=== PATIENT | female | born 1940 | race Asian ===

== ENCOUNTER 2018-11-25 19:17 | Emergency (ER) | payer MEDICARE, OTHER, SELFPAY ==
[2018-11-25 19:22] VITALS: BP 179/82; PULSE 88; RESP 16; TEMP 37.1; O2SAT 99
[2018-11-25 19:37] VITALS: BP 170/70
--- NOTE | 2018-11-25 19:38 | PC.NURSE ---
Provided teaching to patient and spouse on how to use new blood pressure cuff. vitals taken on patients new machine. Pt verbalizes understanding on usage of personal machine and return demonstration provided.
[2018-11-25 20:15] VITALS: BP 139/81
[2018-11-25 20:39] LABS: Add Manual Diff / Slide Review NO; Basophils Absolute Auto 0 /uL (0-100); Basophils Percent Auto 0.4 % (0-2); Eosinophils Absolute Auto 100 /uL (0-450); Eosinophils Percent Auto 1.6 % (2-4); Hematocrit 40.9 % (36-46); Hemoglobin 13.9 g/dL (12.0-16.0); Lymphocytes Absolute Auto 1800 /uL (1100-4500); Lymphocytes Percent Auto 36.6 % (25-40); Mean Corpuscular Hemoglobin 32.2 PG (26-34); Mean Corpuscular Volume 94.6 fL (80-100); Monocytes Absolute Auto 400 /uL (0-900); Monocytes Percent Auto 8.8 % (3-14); Neutrophils Absolute Auto 2600 /uL (1500-7000); Neutrophils Percent Auto 52.6 % (50-75); Platelet Count 232 X10^3/uL (150-400); Red Blood Cell Count 4.32 X10^6/uL (4.0-5.2)
[2018-11-25 20:41] VITALS: BP 133/69
[2018-11-25 20:52] LABS: Alanine Aminotransferase 25 IU/L (9-52); Albumin 4.1 g/dL (3.5-5.0); Albumin Globulin Ratio 1.2 (1.0-2.8); Alkaline Phosphatase 56 U/L (38-126); Aspartate Aminotransferase 33 IU/L (14-36); BUN Creatinine Ratio 21.4 (6-22); Bilirubin Total 0.4 mg/dL (0.2-1.3); Blood Urea Nitrogen 15 mg/dL (7-17); Calcium 9.5 mg/dL (8.4-10.2); Carbon Dioxide 28 mmol/L (22-32); Chloride 102 mmol/L (98-107); Creatine Kinase 106 U/L (30-135); Estimated Glomerular Filt Rate > 60.0 mL/min (>60); Globulin 3.3 g/dL (1.7-4.1); Glucose 120 mg/dL (80-110); HEMOLYSIS < 15 (0-50); Potassium 3.7 mmol/L (3.4-5.1); Sodium 139 mmol/L (137-145); Total Protein 7.4 g/dL (6.3-8.2)
[2018-11-25 21:04] LABS: Troponin I < 0.012 ng/mL (0.01-0.034)
[2018-11-25 21:08] LABS: CKMB % Relative Index 1.3 % (1.5-5.0); Creatine Kinase MB 1.41 ng/mL (<2.37)
--- NOTE | 2018-11-25 21:08 | ED_ITS ---
HPI - General Adult <HUGO BallP - Last Filed: 11/25/18 23:28> General Chief complaint: Hypertension Stated complaint: HIGH BLOOD PRESSURE RIGHT EYE IS RED Time Seen by Provider: 11/25/18 19:37 Source: patient Mode of arrival: ambulatory Limitations: no limitations History of Present Illness HPI narrative: This is a pleasant 78-year-old female, nonsmoker, presents with her friend with chief complain of elevated blood pressure for last 10 days. She reports her usual blood pressure is in 130-140's/70-80's. However, it has been running in systolic 150s to 160s over diastolic 80s. She was evaluated by Dr. Lakhani 4 days ago and her daily lisinopril was increased from 5 mg to 7.5 mg which she started taking on Wednesday. She denies extremity weakness, balance problem, speech difficulty, facial droops or vision change. She reports posterior neck tightness and mild head discomfort. She denies chest pain, breathing difficulty, dizziness. She also has subconjunctival hemorrhage since yesterday on her right eye. She was evaluated by eye doctor today. She reports there is no vision change in right eye. She was informed by eye doctor that this condition could happen with high blood pressure and was concerned if she needs head CT scan. Review of Systems <Oscar TanNereida [facility] Last Filed: 11/25/18 23:28> Review of Systems General: Denies fever, chills, fatigue, malaise, sweats. HEENT: Denies sinus pain, ear pain, sore throat, difficulty swallowing, dizziness. Respiratory: Denies dyspnea, cough, wheezing, hemoptysis, sputum. Cardiovascular: Denies chest pain, palpitations, orthopnea, edema. Gastrointestinal: Denies nausea, vomiting, abdominal pain, diarrhea, constipation, melena. : Denies dysuria, frequency, incontinence, hematuria, urinary retention. Musculoskeletal: Denies weakness, joint pain or bony pain. Skin: Denies rash, skin lesions, or other. Neurologic: Denies weakness, headache, numbness, change in speech, confusion, seizures, incoordination. Psychiatric: No concerning psychosocial issues. 12-point review of systems is negative except for those stated above. PFSH <Oscar Garcia [facility] Last Filed: 11/25/18 23:28> Medical History (Updated 11/25/18 @ 21:26 by WILL Ball) HTN (hypertension) (Acute) Social History Smoking Status: Never smoker Social History Smoking Status: Never smoker Exam <WILL Ball - Last Filed: 11/25/18 23:28> Narrative Exam Narrative: GEN: Alert, oriented x 3, well appearing and nourished, and appears to be anxious, appears to be younger than her stated age. Head: Normal cephalic, atraumatic. No scalp or temporal tenderness, palpable mass or rash. EYES: Pupils are equal, round, and reactive to light and accommodation. Extraocular muscles are intact bilaterally. There is R subconjunctival hemorrhage. No exudate and sclera non-icteric. ENT: Hearing grossly intact. Nose without bleeding, purulent discharge. Facial sinuses nontender to palpate. Mucous membrane moist, no mucosal lesion. Throat without erythema, tonsillar hypertrophy or exudate. Uvula in midline, airway patent. Neck: Trachea in midline. No JVD, non-tender without lymphadenopathy. No masses or thyroid megaly. Supple, non-tender and meningeal signs. CARDIAC: Normal regular rate and rhythm without murmurs, gallops, or rubs. No chest wall tenderness. No peripheral edema, cyanosis or pallor. Capillary refi ll is less than 2 seconds. RESPIRATORY: Lungs are cleat to auscultate bilaterally. No cough, wheezes, rales, or rhonchi. No stridor, respiratory distress, increase work of breathing, or accessary muscle used. ABD: Abdomen soft, nontender and non-distended. No guarding or rebound tenderness to palpate. Bowel sounds are normal in all 4 quadrants. There is no palpable masses or organomegaly. EXT: Full painless ROM of all extremities with no loss of sensation, strength, effusion or edema. SKIN: Warm, dry, normal color for patient. No erythema, lesions or rash. BACK: Nontender without deformity or crepitance. No flank tenderness. NEUROLOGICAL: Alert and oriented to place, time and person. No facial droops, dysphasia. CN II-XII intact. Strength and sensation symmetric and intact throughout. Cerebellar testing normal. PSYCHIATRIC: Good judgement and reason, without hallucinations, abnormal affect or abnormal behaviors during the examination. Patient is not suicidal. Initial Vital Signs Initial Vital Signs: Vital Signs Temperature 98.8 F 11/25/18 19:22 Pulse Rate 88 11/25/18 19:22 Respiratory Rate 16 11/25/18 19:22 Blood Pressure 179/82 H 11/25/18 19:22 Pulse Oximetry 99 11/25/18 19:22 <Parker Hoffman MD - Last Filed: 11/26/18 02:14> Initial Vital Signs Initial Vital Signs: Vital Signs Temperature 98.8 F 11/25/18 19:22 Pulse Rate 88 11/25/18 19:22 Respiratory Rate 16 11/25/18 19:22 Blood Pressure 179/82 H 11/25/18 19:22 Pulse Oximetry 99 11/25/18 19:22 Scores <WILL Ball - Last Filed: 11/25/18 23:28> HEART Score Heart Score history: Slightly Suspicious Heart Score EKG: Normal Heart Score Age: > or = 65 years old Heart Score risk factors: 1-2 risk factors Heart Score troponin: < or = to normal limit Heart Score Total: 3 Course <WILL Ball - Last Filed: 11/25/18 23:28> Orders Ordered: ED Orders 11/25/18 20:10 EKG-12 Lead Stat 11/25/18 20:30 Complete Blood Count AUTO DIFF Stat Comprehensive Metabolic Panel Stat Troponin & CK Cardiac Panel Stat Vital Signs - 8 hr 11/25/18 19:22 11/25/18 19:37 11/25/18 20:15 Temperature 98.8 F Pulse Rate 88 Respiratory Rate 16 Blood Pressure 179/82 H Blood Pressure [Right Arm] 170/70 H 139/81 Pulse Oximetry 99 11/25/18 20:41 11/25/18 21:15 11/25/18 21:36 Temperature Pulse Rate Respiratory Rate Blood Pressure 142/76 H Blood Pressure [Right Arm] 133/69 143/72 H Pulse Oximetry <Parker Hoffman MD - Last Filed: 11/26/18 02:14> Orders Ordered: ED Orders 11/25/18 20:10 EKG-12 Lead Stat 11/25/18 20:30 Complete Blood Count AUTO DIFF Stat Comprehensive Metabolic Panel Stat Troponin & CK Cardiac Panel Stat Vital Signs - 8 hr 11/25/18 19:22 11/25/18 19:37 11/25/18 20:15 Temperature 98.8 F Pulse Rate 88 Respiratory Rate 16 Blood Pressure 179/82 H Blood Pressure [Right Arm] 170/70 H 139/81 Pulse Oximetry 99 11/25/18 20:41 11/25/18 21:15 11/25/18 21:36 Temperature Pulse Rate Respiratory Rate Blood Pressure 142/76 H Blood Pressure [Right Arm] 133/69 143/72 H Pulse Oximetry Medical Decision Making <WILL Ball - Last Filed: 11/25/18 23:28> Differential Diagnosis hypertension, IA, neurological deficit, stroke Medical Records Medical records reviewed: Yes I reviewed the patient's medical records. Lab Data Lab results reviewed: Yes I reviewed the patient's lab results. Result diagrams: 11/25/18 20:30 11/25/18 20:30 Lab Results 11/25/18 11/25/18 Range/Units 20:30 20:30 WBC 5.0 (4.5-11.0) X10^3/uL RBC 4.32 (4.0-5.2) X10^6/uL Hgb 13.9 (12.0-16.0) g/dL Hct 40.9 (36-46) % MCV 94.6 (80-100) fL MCH 32.2 (26-34) PG MCHC 34.0 (30-36) % RDW 12.0 (11.6-14.8) % Plt Count 232 (150-400) X10^3/uL Neut % (Auto) 52.6 (50-75) % Lymph % (Auto) 36.6 (25-40) % Early % (Auto) 8.8 (3-14) % Eos % (Auto) 1.6 L (2-4) % Baso % (Auto) 0.4 (0-2) % Neut # (Auto) 2600 (6931-2631) /uL Lymph # (Auto) 1800 (6761-2396) /uL Early # (Auto) 400 (0-900) /uL Eos # (Auto) 100 (0-450) /uL Baso # (Auto) 0 (0-100) /uL Sodium 139 (137-145) mmol/L Potassium 3.7 (3.4-5.1) mmol/L Chloride 102 (98-107) mmol/L Carbon Dioxide 28 (22-32) mmol/L BUN 15 (7-17) mg/dL Creatinine 0.70 (0.52-1.04) mg/dL Estimated GFR > 60.0 (>60) mL/min BUN/Creatinine Ratio 21.4 (6-22) Glucose 120 H (80-110) mg/dL Calcium 9.5 (8.4-10.2) mg/dL Total Bilirubin 0.4 (0.2-1.3) mg/dL AST 33 (14-36) IU/L ALT 25 (9-52) IU/L Alkaline Phosphatase 56 (38-126) U/L Total Creatine Kinase 106 (30-135) U/L CK-MB (CK-2) 1.41 (<2.37) ng/mL CK-MB (CK-2) Rel Index 1.3 L (1.5-5.0) % Troponin I < 0.012 (0.01-0.034) ng/mL Total Protein 7.4 (6.3-8.2) g/dL Albumin 4.1 (3.5-5.0) g/dL Globulin 3.3 (1.7-4.1) g/dL Albumin/Globulin Ratio 1.2 (1.0-2.8) ECG Data Attestation: I personally reviewed and interpreted this ECG as follows: Prior ECG tracings: not available for review Interpretation: Normal sinus rhythm rate at 81, borderline L axis, no ST elevation or depression. MDM Narrative Medical decision making narrative: This is a 78-year-old female who appears to be much younger than her stated age came in to ED with concerns of elevated high blood pressure for last 10 days. Her systolic blood pressure was running in 150-160's/80's. She has seen by her primary care physician 4 days ago and had her blood pressure medication, Lisinopril increase to 7.5 mg from 5 mg. She also takes daily baby aspirin. She also had subconjunctival hemorrhage on right eye yesterday and was evaluated by eye doctor today. She was told that this could be from high blood pressure. She denies chest pain, breathing difficulty, dizziness but reports some tightness to her posterior neck/head. The neuro exam was intact and no deficit was observed per exam. I discussed in length with the patient that there is no signs and symptoms of stroke at this time and there is no indication for CAT scan when her blood pressure is not significantly elevated. Her EKG, blood test including cardiac enzyme were remarkable. Her blood pressure during ED stay was in 130s to 140s in systolic over 70s to 80s and diastolic. The patient felt relieved when she was informed with study findings and physical exams. Patient advised to continue to take her blood pressure medication as 7.5 mg of lisinopril and to follow up with primary care physician next week. Return precautions were discussed with patient including chest pain, breathing difficulty, dizziness, vision change, severe headache, weakness to limbs, speech difficulty, visual changes, facial drips, swallowing difficulty. Patient verbalized the understanding and no further questions were expressed at this time. <Parker Hoffman MD - Last Filed: 11/26/18 02:14> Lab Data Lab Results 11/25/18 11/25/18 Range/Units 20:30 20:30 WBC 5.0 (4.5-11.0) X10^3/uL RBC 4.32 (4.0-5.2) X10^6/uL Hgb 13.9 (12.0-16.0) g/dL Hct 40.9 (36-46) % MCV 94.6 (80-100) fL MCH 32.2 (26-34) PG MCHC 34.0 (30-36) % RDW 12.0 (11.6-14.8) % Plt Count 232 (150-400) X10^3/uL Neut % (Auto) 52.6 (50-75) % Lymph % (Auto) 36.6 (25-40) % Early % (Auto) 8.8 (3-14) % Eos % (Auto) 1.6 L (2-4) % Baso % (Auto) 0.4 (0-2) % Neut # (Auto) 2600 (3928-8897) /uL Lymph # (Auto) 1800 (4718-2028) /uL Early # (Auto) 400 (0-900) /uL Eos # (Auto) 100 (0-450) /uL Baso # (Auto) 0 (0-100) /uL Sodium 139 (137-145) mmol/L Potassium 3.7 (3.4-5.1) mmol/L Chloride 102 (98-107) mmol/L Carbon Dioxide 28 (22-32) mmol/L BUN 15 (7-17) mg/dL Creatinine 0.70 (0.52-1.04) mg/dL Estimated GFR > 60.0 (>60) mL/min BUN/Creatinine Ratio 21.4 (6-22) Glucose 120 H (80-110) mg/dL Calcium 9.5 (8.4-10.2) mg/dL Total Bilirubin 0.4 (0.2-1.3) mg/dL AST 33 (14-36) IU/L ALT 25 (9-52) IU/L Alkaline Phosphatase 56 (38-126) U/L Total Creatine Kinase 106 (30-135) U/L CK-MB (CK-2) 1.41 (<2.37) ng/mL CK-MB (CK-2) Rel Index 1.3 L (1.5-5.0) % Troponin I < 0.012 (0.01-0.034) ng/mL Total Protein 7.4 (6.3-8.2) g/dL Albumin 4.1 (3.5-5.0) g/dL Globulin 3.3 (1.7-4.1) g/dL Albumin/Globulin Ratio 1.2 (1.0-2.8) Discharge Plan Departure Patient Disposition: Home Clinical Impression: History of high blood pressure Discharge Date/Time: 11/25/18 21:37 Interventions: ED Discharge Assessment Last Done: 11/25/18 21:36 Instructions: DI for High Blood Pressure Activity Restrictions/Additional Instructions: You have been diagnosed with [mildly elevated blood pressure without no abnormal findings. You do have history of high blood pressure. Your blood pressure in the ED today was unremarkable. Your neuro exam was within normal. Your EKG and blood tests including cardiac enzymes were all unremarkable]. What to do: *Take your medications as directed. Please continue to take lisinopril 7.5 mg daily. There is no new medications to go home today. *Follow up with your primary care provider in 2-3 days, call for an appointment. Let them know you were seen in the ED and that we asked you to be seen in follow up. *Return to ED if you have any new, worsening, or concerning symptoms, such as [chest pain, breathing difficulty, dizziness, weakness to limbs, severe headache, vision change, difficulty with speech, balance problem, unable to tolerate fluids or any acute concerns]. Referrals: Anastasia Lakhani MD [Physician] - <Parker Hoffman MD - Last Filed: 11/26/18 02:14> Cosign ED Attending Elianeature Attestation: I was present in the ER at the time this patient's care. I was available consultation or to see the patient directly. I agree with the assessment and treatment plan.
[2018-11-25 21:15] VITALS: BP 143/72
[2018-11-25 21:36] VITALS: BP 142/76
== END 2018-11-25 21:37 | disposition home or self-care (01) ==
PROVIDERS: Emergency Provider Nurse Practitioner Family
DX: Z87.898 Personal history of other specified conditions (principal); I10 Essential (primary) hypertension
CPT/HCPCS: 36415; 80053; 82550; 82553; 84484; 85025; 93005; 93010; 99283; 99284

== ENCOUNTER → 2021-12-02 14:49 | Outpatient (CLI) | payer MEDICARE, OTHER, SELFPAY ==
--- NOTE | 2021-12-02 14:53 | DI.MRI.S_ITS ---
PROCEDURE: MR SHOULDER RT WO CON INDICATIONS: Pain in right shoulder TECHNIQUE: Noncontrast oblique coronal T2 fast spin echo with fat saturation, oblique sagittal T1 spin echo and T2 fast spin echo with fat saturation, axial T1 spin echo and T2 fast spin echo with fat saturation through the shoulder. COMPARISON: None. FINDINGS: Image quality: Excellent. Rotator cuff: Full-thickness tearing of the mid and posterior supraspinatus as well as the anterior infraspinatus tendons at the humeral insertion sites. Full-thickness tearing of the upper subscapularis tendon at the humeral insertion site. Low-grade partial-thickness tendon tearing of the mid and posterior infraspinatus tendon at the humeral insertion site extending to the musculotendinous junction. Teres minor is intact. Bones and bursae: No bone marrow contusions or fractures. Mild glenohumeral and acromioclavicular joint degeneration. The acromion demonstrates conventional anatomy, without an os acromiale. No pathologic subacromial-subdeltoid or subcoracoid bursal fluid is present. Capsule and soft tissues: Labrum is grossly intact The long head of the biceps tendon demonstrates normal location and partial-thickness tearing The rotator interval appears normal, without fibrosis. The coracohumeral ligament is normal in thickness. IMPRESSION: 1. Full-thickness tearing of the supraspinatus, subscapularis and infraspinatus tendons as described above. Partial-thickness tears of the infraspinatus as above. 2. Acromioclavicular and glenohumeral joint osteoarthritis. 3. Partial-thickness tearing of the biceps tendon. Dictated by: Karlene Bird M.D. on 12/02/2021 at 16:52 Approved by: Karlene Bird M.D. on 12/02/2021 at 16:53
== END ==
PROVIDERS: PCP Specialist; Referring Provider Internal Medicine; Visit Provider Internal Medicine
DX: M75.121 Complete rotator cuff tear or rupture of right shoulder, not specified as traumatic (principal); M19.011 Primary osteoarthritis, right shoulder; S46.111A Strain of muscle, fascia and tendon of long head of biceps, right arm, initial encounter; M25.511 Pain in right shoulder
CPT/HCPCS: 73221

== ENCOUNTER → 2022-01-25 12:41 | Outpatient (CLI) | payer MEDICARE, OTHER, SELFPAY ==
--- NOTE | 2022-01-25 12:43 | DI.RAD.S_ITS ---
PROCEDURE: XR SHOULDER RT MIN 2V INDICATIONS: Right shoulder injury TECHNIQUE: 3 views of the shoulder were acquired. COMPARISON: [facility], CR, XR SHOULDER 2+ VIEWS BILATERAL, 02/03/2021, 14:24. [facility], CR, XR SHOULDER 2+ VIEWS RIGHT, 11/25/2021, 14:19. [facility], CR, XR HUMERUS RT 2V, 01/25/2022, 12:47. FINDINGS: Bones: No fractures or dislocations. No suspicious bony lesions. Visualized ribs appear intact. Degenerative changes are seen, with mild subacromial spurring. There is mild lateral downsloping seen of the acromion. Soft tissues: No suspicious soft tissue calcifications. The visualized lung demonstrates an unremarkable appearance. IMPRESSION: No acute plain film abnormality is seen. Age-appropriate degenerative changes are seen. If it would be helpful for clinical management decision making, please consider a dedicated, scheduled shoulder MRI for further evaluation (assuming that there is no contraindication). Dictated by: Chris Ng M.D. on 01/25/2022 at 11:57 Approved by: Chris Ng M.D. on 01/25/2022 at 11:58
--- NOTE | 2022-01-25 12:43 | DI.RAD.S_ITS ---
PROCEDURE: XR HUMERUS RT 2V INDICATIONS: Right upper arm injury TECHNIQUE: 2 views of the humerus were acquired. COMPARISON: [facility], CR, XR SHOULDER 2+ VIEWS RIGHT, 11/25/2021, 14:19. FINDINGS: Bones: No fractures or dislocations. No suspicious bony lesions. Mild right shoulder degenerative changes are seen. The visualized ribs appear intact. Soft tissues: No suspicious soft tissue calcifications. The visualized lung demonstrates an unremarkable appearance. IMPRESSION: No acute plain film abnormality is seen. Dictated by: Chris Ng M.D. on 01/25/2022 at 11:55 Approved by: Chris Ng M.D. on 01/25/2022 at 11:56
== END ==
PROVIDERS: PCP Internal Medicine; Referring Provider Nurse Practitioner Family; Visit Provider Nurse Practitioner Family
DX: S49.91XA Unspecified injury of right shoulder and upper arm, initial encounter (principal); X58.XXXA Exposure to other specified factors, initial encounter
CPT/HCPCS: 73030; 73060